=== PATIENT | male | born 1965 | race Caucasian/White ===

== ENCOUNTER → 2017-02-20 | Outpatient (REF) | payer BC ==
[2017-02-20 19:56] LABS: REASON FOR REVIEW COMPREHENSIVE REVIEW
== END ==
LOC: M LAB REF 15:12
PROVIDERS: ATTEND Internal Medicine Medical Oncology
DX: D75.1 Secondary polycythemia (principal); E83.119 Hemochromatosis, unspecified

== ENCOUNTER → 2017-02-24 | Outpatient (CLI) | payer BC ==
--- NOTE | 2017-02-25 05:29 | REP ---
Clinical: Erythrocytosis. Technique: Real time riley scale ultrasound examination using curved array transducer. Findings: Liver, spleen, and pancreas are normal in contour, size, and echogenicity without focal hepatic, splenic or pancreatic lesions identified. Spleen is upper limits of normal in size and measures 10.8 x 10.0 x 5.6 cm. Splenic index equal 605. The gallbladder is normal and without gallstones, wall thickening, or pericholecystic fluid. No biliary ductal dilatation is appreciated and the common bile duct measures 3.4 mm diameter. Bilateral kidneys are normal in reniform shape without hydronephrosis. Right kidney measures 11.4 x 4.8 x 4.7 cm. Left kidney measures 11.7 x 5.5 x 5.0 cm. Abdominal aorta is normal and measures 2.5 cm maximal diameter. No ascites. Impression: The spleen is upper limits of normal in size. Otherwise normal complete abdominal ultrasound. Signed by Florin Leslie MD 02/25/2017 05:20 A
== END ==
LOC: M RAD 08:17
PROVIDERS: ATTEND Internal Medicine Medical Oncology
DX: D75.1 Secondary polycythemia (principal)

== ENCOUNTER → 2018-08-28 | Outpatient (CLI) | payer OTHER ==
--- NOTE | 2018-08-28 12:30 | REP ---
MRI right shoulder without contrast: History: Acute pain. No comparison right shoulder imaging. Technique: Axial, oblique coronal, and oblique sagittal imaging planes are utilized for T1 and T2-weighted scans obtained with and without fat saturation in the usual fashion. MRI findings: There is a moderate amount of marrow edema in a somewhat hypertrophied distal clavicle at the AC joint consistent with osteoarthritis. There is mild superior hypertrophy. A tiny amount of bursal fluid is seen at the inferior tip of the acromion process. Glenohumeral and acromioclavicular joints are normally aligned. Cortical and medullary bone signal intensity are otherwise normal. There is some swelling and increased signal intensity in the distal supraspinatus tendon consistent with tendinosis. No focal cuff tear lesion is seen. There is some irregularity of the superior labral cartilage and the anterior labral cartilage consistent with fraying. No keeley tear is seen. No loose body is seen. The infraspinatus tendon shows distal insertion tendinosis. Subscapularis tendon appears intact. Biceps tendon is unremarkable. There is T2 hyperintense edema and a question of a small cyst at the posterior aspect of the superior labrum questioned superior labral cartilage tear and paralabral cyst. The exam is otherwise unremarkable. 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 Tiny sliver of subacromial subdeltoid bursal fluid. Fraying of the superior and anterior labral cartilage with a questionable paralabral cyst posteriorly at the superior labrum. Supraspinatus and infraspinatus tendinosis change distally. Electronically Signed by Dandre Graf MD 08/28/2018 03:18 P
== END ==
LOC: M RAD 10:12
PROVIDERS: ATTEND Family Medicine
DX: M19.011 Primary osteoarthritis, right shoulder (principal); M89.311 Hypertrophy of bone, right shoulder

== ENCOUNTER → 2022-06-27 | Outpatient (CLI) | payer BC ==
[~2022-06-27] MED LIST: KRIL1000 PO; THERTAB52 PO
== END ==
LOC: M PLAIMG 13:16
PROVIDERS: ATTEND Nurse Practitioner
DX: D72.829 Elevated white blood cell count, unspecified (principal)